=== PATIENT | female | born 1990 | race Caucasian/White ===

== ENCOUNTER 2021-10-17 08:26 | Emergency (ER) | payer BC, OTHER, SELFPAY ==
[2021-10-17 08:35] VITALS: BP 129/70; PULSE 88; RESP 16; TEMP 36.5; O2SAT 96
--- NOTE | 2021-10-17 08:45 | ED.EAR ---
HPI - Ear Problem General Chief complaint: Ear Stated complaint: Ear Pain Time Seen by Provider: 10/17/21 08:46 Source: patient and RN notes reviewed Mode of arrival: ambulatory Limitations: no limitations History of Present Illness HPI Narrative: 31-year-old female who presents to [facility] with complaints of right ear pain which started at 2 AM. Patient reports that she has had some yellowish drainage from her right ear at first and then drainage has been serosanguineous in color. Patient reports that she had sinus allergy symptoms which started one week ago and has been taking some Zyrtec. Patient has not taken any OTC medications for her discomfort. MD Complaint: ear pain and ear discharge Location: right ear Duration: constant Severity: moderate Context: Reports other (sinus symptoms) Discharge from ear: Reports yes - bloody and yes - purulent Associated symptoms ear: decreased hearing and other (popping) Treatment prior to arrival: none Related Data Home Medications Medication Instructions Recorded Confirmed alprazolam 0.5 mg PO BID 10/17/21 10/17/21 buspirone 10 mg PO BID 10/17/21 10/17/21 fluoxetine 40 mg PO BID 10/17/21 10/17/21 Allergies Allergy/AdvReac Type Severity Reaction Status Date / Time codeine Allergy Unknown ITCHING Verified 10/17/21 08:53 Review of Systems Review of Systems: CONSTITUTIONAL: Denies fever, chills, or sweats. EYES: Denies visual changes, redness, or discharge. ENT: Positive for rhinorrhea, congestion,no sore throat, right otalgia. CARDIOVASCULAR: Denies chest pain, palpitations, or edema. RESPIRATORY: Denies cough or dyspnea. GASTROINTESTINAL: Denies abdominal pain, nausea, vomiting, or diarrhea. GENITOURINARY: interstitial cystitis has episodes of dysuria. SKIN: Denies rash or itching. MUSCULOSKELETAL: Denies back pain, joint pain, or myalgia. NEUROLOGIC: Denies headache, numbness, or weakness. PSYCHIATRIC: Positive for anxiety or depression. All systems reviewed & are unremarkable except as noted in HPI and below PMFSH Past Medical History Medical History (Updated 10/17/21 @ 14:36 by Shira Ross NP) Anxiety and depression Interstitial cystitis Surgical History Surgical History (Updated 10/17/21 @ 14:37 by Shira Ross NP) H/O inguinal hernia repair Previous section Social History Social History (Updated 10/17/21 @ 14:38 by Shira Ross NP) Tobacco type: e-cigarettes/vaping Alcohol intake: never Substance use type: marijuana Living arrangements: with family Gender identity (if verbalized by the patient): Female Comments At time of signature, agree with nursing past medical, surgical, social and family history. There is no relevant family history pertinent to the presenting complaint Exam Narrative: GENERAL: Well-appearing, well-nourished, and in no acute distress. HEAD: Normocephalic, atraumatic. EYES: PERRLA and EOMI. ENT: Nares clear, no rhinorrhea or epistaxis. Mucous membranes moist.right ear red and bulging with noted scant serosanguineous drainage noted from right ear no perforation seen, left ear normal with good light reflex, throat pink with no lesions or exudates or tonsil enlargement. NECK: Supple.no lymphadenopathy CHEST: Clear to auscultation. No respiratory distress. SAO2 96% on room air HEART: Regular rate and rhythm. No murmur heard. Normal peripheral pulses. ABDOMEN: Soft, some lower abdomen tenderness over suprapubic area, nondistended, normal active bowel sounds.denies any nausea or vomiting, denies any hematuria. EXTREMITIES: Normal range of motion. No edema. SKIN: Warm, dry, no rash. NEURO: No focal deficits. Alert and oriented x3. Course Course Level of Care: Express Care Visit Vital Signs Vital signs: Vital Signs Temperature 36.5 C 10/17/21 08:35 Pulse Rate 88 10/17/21 08:35 Respiratory Rate 16 10/17/21 08:35 Blood Pressure 129/70 10/17/21 08:35 Pulse Oximetry 96 10/17/21 08:35
== END 2021-10-17 09:07 | disposition home or self-care (01) ==
PROVIDERS: Emergency Provider Registered Nurse
DX: H66.91 Otitis media, unspecified, right ear (principal); F17.290 Nicotine dependence, other tobacco product, uncomplicated; F41.9 Anxiety disorder, unspecified; F32.A Depression, unspecified
CPT/HCPCS: 99213; G0463

== ENCOUNTER 2023-10-27 09:08 | Emergency (ER) | payer MEDICAID, SELFPAY ==
[2023-10-27 09:17] VITALS: BP 122/59; PULSE 96; RESP 16; TEMP 36.7; O2SAT 99
--- NOTE | 2023-10-27 09:25 | ED.EYEPROB ---
HPI - Eye Problem General Chief complaint: Eye Problems Stated complaint: eyes Time Seen by Provider: 10/27/23 09:25 Source: patient and RN notes reviewed Mode of arrival: ambulatory Limitations: no limitations History of Present Illness HPI Narrative: 33-year-old female presents concern for bilateral eye drainage, sensitivity, irritation. Reports eyes were matted shut when she woke up. She denies vision changes. She reports exposure to pinkeye. chief complaint: eye redness Related Data Home Medications Medication Instructions Recorded Confirmed alprazolam 0.5 mg tablet 0.5 mg PO BID 10/17/21 10/27/23 buspirone 10 mg tablet 10 mg PO BID 10/17/21 10/17/21 fluoxetine 40 mg capsule 40 mg PO BID 10/17/21 10/27/23 Allergies Allergy/AdvReac Type Severity Reaction Status Date / Time codeine Allergy Unknown ITCHING Verified 10/17/21 08:53 Review of Systems Review of Systems: CONSTITUTIONAL: Denies malaise, chills, sweats, or fever. EYES: Denies visual changes. Reports bilateral redness, irritation, discharge. ENT: Denies rhinorrhea, congestion, sinus pain, otalgia or sore throat. SKIN: Denies rash or itching. NEUROLOGIC: Denies numbness, weakness, or headache. PSYCHIATRIC: Denies anxiety or depression. All systems reviewed & are unremarkable except as noted in HPI and below PMFSH Past Medical History Medical History (Updated 10/27/23 @ 09:30 by Shikha Braxton NP) Anxiety and depression Interstitial cystitis Surgical History Surgical History (Updated 10/17/21 @ 14:37 by Shira Ross NP) H/O inguinal hernia repair Previous section Social History Social History (Updated 10/17/21 @ 14:38 by Shira Ross NP) Tobacco type: e-cigarettes/vaping Alcohol intake: never Substance use type: marijuana Living arrangements: with family Gender identity (if verbalized by the patient): Female Comments At time of signature, agree with nursing past medical, surgical, social and family history. There is no relevant family history pertinent to the presenting complaint Exam Narrative: GENERAL: Well-appearing, well-nourished, and in no acute distress. HEAD: Normocephalic, atraumatic. EYES: PERRLA, sclera clear, and EOMI. No nystagmus. Bilateral sclera and conjunctivae injected with yellow drainage. Right upper eyelid erythematous and mild edematous. Left Upper and lower eyelid unremarkable, no periorbital edema noted ENT: Nares clear, turbinates pink, no rhinorrhea or epistaxis. Mucous membranes moist. TM pearly dmearco with sharp light reflex bilaterally; no tragal tenderness. NECK: Supple. CHEST: No respiratory distress. Speaks in full sentences. HEART: Regular rate and rhythm. SKIN: Warm, dry, no visible rash. NEURO: Alert and oriented x3. PSYCH: Normal mood and affect Course Course Emergency Course: Patient is aware of diagnosis, understands and agrees to treatment plan. Anticipatory guidance given. Patient agrees to follow-up as directed and is aware of reasons to seek care at the emergency department. Portions of this record may have been created with voice recognition software Level of Care: Express Care Visit Vital Signs Vital signs: Vital Signs Temperature 98.1 F 10/27/23 09:17 Pulse Rate 96 10/27/23 09:17 Respiratory Rate 16 10/27/23 09:17 Blood Pressure 122/59 L 10/27/23 09:17 Pulse Oximetry 99 10/27/23 09:17 Oxygen Delivery Room Air 10/27/23 09:17 Temperature 98.1 F 10/27/23 09:17 Pulse Rate 96 10/27/23 09:17 Respiratory Rate 16 10/27/23 09:17 Blood Pressure 122/59 L 10/27/23 09:17 Pulse Oximetry 99 10/27/23 09:17 Oxygen Delivery Room Air 10/27/23 09:17 Reviewed. MDM - Eye Problem MDM Narrative Medical decision making narrative: Consideration of the following conditions may be warranted for the presenting problem, they are not final diagnoses: Bacterial conjunctivitis, allergic conjunctivitis, viral conjunct
== END 2023-10-27 09:35 | disposition home or self-care (01) ==
PROVIDERS: Emergency Provider Nurse Practitioner; PCP Nurse Practitioner Family
DX: H10.9 Unspecified conjunctivitis (principal); F17.290 Nicotine dependence, other tobacco product, uncomplicated; F12.90 Cannabis use, unspecified, uncomplicated; F41.9 Anxiety disorder, unspecified; F32.A Depression, unspecified
CPT/HCPCS: 99213; G0463

== ENCOUNTER 2024-01-13 08:10 | Emergency (ER) | payer OTHER, SELFPAY ==
[2024-01-13 08:20] VITALS: BP 130/61; PULSE 82; RESP 20; TEMP 36.6; O2SAT 100
--- NOTE | 2024-01-13 08:36 | ED.URI ---
HPI - URI/Sore Throat General Chief Complaint: Upper Respiratory Infection Stated Complaint: Sore Throat History of Present Illness HPI Narrative: Patient is a 33-year-old female, past medical history significant for depression, presents to [facility] with 24 hour history of sore throat, malaise, body aches and chills. She denies associated URI symptoms otherwise. She denies any additional complaints today. She is taking Tylenol as directed [id number] for discomfort and subjective fever. She denies chance of . She has no other complaints. Related Data Home Medications Medication Instructions Recorded Confirmed alprazolam 0.5 mg tablet 0.5 mg PO BID 10/17/21 01/13/24 fluoxetine 40 mg capsule 40 mg PO BID 10/17/21 01/13/24 buspirone 15 mg tablet 15 mg PO BID 10/27/23 01/13/24 lamotrigine 100 mg tablet 100 mg PO BID 10/27/23 01/13/24 quetiapine 150 mg tablet 150 mg PO HS 10/27/23 01/13/24 Allergies Allergy/AdvReac Type Severity Reaction Status Date / Time codeine Allergy Unknown ITCHING Verified 01/13/24 08:27 Review of Systems ENT: Comments: Refer to [facility] Past Medical History Medical History (Updated 01/13/24 @ 08:41 by YULY Rosenthal) Anxiety and depression Interstitial cystitis Surgical History Surgical History (Updated 10/17/21 @ 14:37 by Shira Ross NP) H/O inguinal hernia repair Previous section Social History Social History (Updated 10/17/21 @ 14:38 by Shira Ross NP) Tobacco type: e-cigarettes/vaping Alcohol intake: never Substance use type: marijuana Living arrangements: with family Gender identity (if verbalized by the patient): Female Exam Const: General: healthy appearing, no acute distress and alert Nutritional Appearance: well nourished Orientation/consciousness: patient oriented x3 Limitations: no limitations HENMT: Head: normal to inspection Ears: external ears normal and TM's normal bilaterally Face/Nose/Sinus: Normal external nose present and Normal nares present Face and sinus: normal facial exam Mouth: Yes Normal oral and palatal mucosa present Throat: uvula midline Other: patient has diffuse pharyngeal erythema, palatal petechiae are noted, tonsils are 3+ bilaterally with exudate, no trismus, uvula midline Eyes: Conjunctivae: conjunctivae normal EOM: EOMs intact bilaterally Neck: Neck: normal visual inspection, no meningeal signs and lymphadenopathy ( anterior cervical lymphadenopathy noted bilaterally, no meningeal signs) Resp: Effort & Inspection: normal respiratory effort Auscultation: clear to auscultation bilaterally Cardio: Rate: regular rate Rhythm: regular rhythm Skin: General skin exam: normal color Rashes: no rashes Wounds: no wounds Neuro: General: patient oriented x3, moves all extremities, no meningeal signs, no focal motor deficits and CN's II-XI intact bilaterally Cranial nerves: Yes Nystagmus not present Speech: normal speech Gait exam (Neuro): Normal gait present Course Course Emergency Course: patient's strep screen is positive, will treat with cephalexin, follow-up with her PCP in 3 days if symptoms are not resolving, push fluids and rest, replace toothbrush after 24 hours antibiotics are comp Level of Care: Express Care Visit ([id number]) Vital Signs Vital signs: Vital Signs Temperature 36.6 C 01/13/24 08:20 Pulse Rate 82 01/13/24 08:20 Respiratory Rate 20 01/13/24 08:20 Blood Pressure 130/61 01/13/24 08:20 Pulse Oximetry 100 01/13/24 08:20 Oxygen Delivery Room Air 01/13/24 08:20 Temperature 36.6 C 01/13/24 08:20 Pulse Rate 82 01/13/24 08:20 Respiratory Rate 20 01/13/24 08:20 Blood Pressure 130/61 01/13/24 08:20 Pulse Oximetry 100 01/13/24 08:20 Oxygen Delivery Room Air 01/13/24 08:21 MDM - URI/Sore Throat MDM Narrative Medical decision making narrative: strep test positive will treat with cephalexin Di
== END 2024-01-13 08:44 | disposition home or self-care (01) ==
PROVIDERS: Emergency Provider Nurse Practitioner Family
DX: J02.0 Streptococcal pharyngitis (principal); F17.290 Nicotine dependence, other tobacco product, uncomplicated; F12.90 Cannabis use, unspecified, uncomplicated; F41.9 Anxiety disorder, unspecified; F32.A Depression, unspecified
CPT/HCPCS: 87880; 99213; G0463

== ENCOUNTER 2024-02-01 17:42 | Emergency (ER) | payer OTHER, SELFPAY ==
[2024-02-01 17:51] VITALS: BP 145/74; PULSE 80; RESP 18; TEMP 36.7; O2SAT 100
[2024-02-01 18:04] LABS: EDUAAPPEAR Cloudy; EDUABILI Negative; EDUABLOOD Trace; EDUACOLOR1 Orange; EDUAGLUCOSE Trace; EDUAKETONE Negative; EDUALEUKO Negative; EDUANITRATE Positive; EDUAPH 5.5; EDUAPROTEIN 1+
--- NOTE | 2024-02-01 18:55 | ED.GENADULT ---
HPI - General Adult General Chief complaint: Urogenital-Female Stated complaint: poss UTI Source: patient Mode of arrival: ambulatory Limitations: no limitations History of Present Illness HPI narrative: Patient presents for evaluation of urinary symptoms for the last week. Symptoms include dysuria, urinary hesitancy, urgency, incomplete emptying, frequency, suprapubic pain, low back pain, subjective fever, chills, nausea, vomiting. No vaginal bleeding or discharge. She has a history of interstitial cystitis. She has had urinary tract infections in the past and this feels similar. She states she typically responds well to Cipro. Related Data Home Medications Medication Instructions Recorded Confirmed alprazolam 0.5 mg tablet 0.5 mg PO BID 10/17/21 01/13/24 fluoxetine 40 mg capsule 40 mg PO BID 10/17/21 01/13/24 buspirone 15 mg tablet 15 mg PO BID 10/27/23 01/13/24 lamotrigine 100 mg tablet 100 mg PO BID 10/27/23 01/13/24 quetiapine 150 mg tablet 150 mg PO HS 10/27/23 01/13/24 Allergies Allergy/AdvReac Type Severity Reaction Status Date / Time codeine Allergy Unknown ITCHING Verified 01/13/24 08:27 Review of Systems Review of Systems: CONSTITUTIONAL: Reports subjective fever and chills. EYES: Denies visual changes, redness, or discharge. ENT: Denies rhinorrhea, congestion, sore throat, or otalgia. CARDIOVASCULAR: Denies chest pain, palpitations, or edema. RESPIRATORY: Denies cough or dyspnea. GASTROINTESTINAL: Reports nausea and vomiting GENITOURINARY: Reports urinary frequency, hesitancy, urgency, incomplete emptying, dysuria and suprapubic discomfort SKIN: Denies rash or itching. MUSCULOSKELETAL: Reports low back pain NEUROLOGIC: Denies headache, numbness, dizziness, or weakness. PSYCHIATRIC: Denies anxiety or depression. [facility] Past Medical History Medical History Anxiety and depression Interstitial cystitis Surgical History Surgical History H/O inguinal hernia repair Previous section Family History Family History Mother Family history non-contributory Social History Social History Tobacco type: e-cigarettes/vaping Alcohol intake: never Substance use type: marijuana Living arrangements: with family Gender identity (if verbalized by the patient): Female Exam Narrative: GENERAL: Well-appearing, well-nourished, and in no acute distress. HEAD: Normocephalic, atraumatic. EYES: PERRLA and EOMI. ENT: Nares clear, no rhinorrhea or epistaxis. Mucous membranes moist. Oropharynx without tonsillar hypertrophy exudate or other lesions. Bilateral TMs pearly demarco nonbulging NECK: Supple. No adenopathy or masses. No carotid bruits or JVD CHEST: Clear to auscultation. No respiratory distress. No wheezes rales or rhonchi HEART: Regular rate and rhythm. No murmur heard. Normal peripheral pulses. ABDOMEN: Soft, nondistended, normal active bowel sounds. Suprapubic tenderness without rebound or guarding BACK: Mild bilateral CVA tenderness EXTREMITIES: Normal range of motion. No edema. SKIN: Warm, dry, no rash. NEURO: No focal deficits. Alert and oriented x3. PSYCH: Normal mood and affect. Course Course Emergency Course: This is a 33-year-old female who presented for evaluation of urinary symptoms. She has evidence of urinary tract infection today. Will treat with Cipro due to favorable historical response. Will also DC with Pyridium and Zofran. Increase hydration. Follow up with primary provider. Go to the ER for worsening symptoms. She is nontoxic appearing and reported symptoms are worse than her physical exam performed today. Patient in agreement plan of care Level of Care: Express Care Visit Vital Signs Vital signs: Vital Sign
== END 2024-02-01 18:57 | disposition home or self-care (01) ==
PROVIDERS: Emergency Provider Nurse Practitioner
DX: N39.0 Urinary tract infection, site not specified (principal); F17.290 Nicotine dependence, other tobacco product, uncomplicated; F12.90 Cannabis use, unspecified, uncomplicated; F41.9 Anxiety disorder, unspecified; F32.A Depression, unspecified
CPT/HCPCS: 81003; 87086; 99213; G0463